=== PATIENT | female | born 1925 | race Caucasian/White ===

== ENCOUNTER 2017-06-01 09:54 | Observation (INO) ==
[2017-06-01] MEDS ORDERED: Nitroglycerin 0.4 MG TAB.SUBL SL ONE (10:02)
[2017-06-01 10:18] LABS: Basophils % 0.7 %; Eosinophils # 0.1 K/mcL (0.0-0.6); Eosinophils % 1.8 %; Hemoglobin 13.6 g/dL (11.5-15.4); Immature Granulocytes % 0.2 % (0-4); Lymphocytes # 1.6 K/mcL (0.6-4.6); Mean Corpuscular HGB Conc 33.2 g/dL (31.6-35.5); Mean Corpuscular Hemoglobin 30.2 pg (28.0-33.3); Mean Corpuscular Volume 91.1 fL (83.0-100.0); Mean Platelet Volume 10.2 fL (9.4-12.4); Monocytes # 0.5 K/mcL (0.0-1.3); Monocytes % 9.5 %; Neutrophils # 3.2 K/mcL (1.6-8.9); Platelet Count 173 K/mcL (140-400); Red Cell Distribution Width 13.3 % (11.5-14.5); Segmented Neutrophils % 58.8 %
--- NOTE | 2017-06-01 10:33 | Emergency Department Note ---
Disposition Clinical Impression: Chest pain Qualifiers: Chest pain type: unspecified Qualified Code(s): R07.9 - Chest pain, unspecified Disposition: Admitted As Inpatient Condition: Fair Referrals: Ananda Thakur DO [Primary Care Provider] - Forms: ED Satisfaction Letter Time of Disposition: 11:06 General Adult HPI - General Chief complaint: ED Chest Pain Stated complaint: CP Time Seen by Provider: 06/01/17 10:02 Source: patient, EMS Mode of arrival: EMS Limitations: no limitations Nursing Notes Reviewed: Yes Vital Signs Reviewed: Yes - History of Present Illness HPI Narrative: 89-year-old female with significant past medical history of hypertension and COPD presenting to the emergency department with chief complaint of substernal chest pain. Patient denies having stents in her heart or any CABG. She does state she had an MD in the past but is unsure how this was treated. Patient states she has had chest pain coming and going for the past 2-3 days. She normally lays down and the pain goes away but this time it did not. When she came in via EMS she was given 4 baby aspirin along with a nitroglycerin. Patient states her pain was moderately relieved with the nitroglycerin. Patient denies any shortness of breath, abdominal pain, fevers. Patient describes the chest pain as an electric-like feeling in her chest and into her scapula. Pain Scale: 1 - Related Data Home Medications Medication Instructions Recorded Confirmed Budesonide/Formoterol 80/4.5 1 puff IH DAILY 06/01/17 06/01/17 [Symbicort 80/4.5] Ezetimibe [Ezetimibe] 10 mg PO DAILY 06/01/17 06/01/17 Lisinopril-HCTZ 20-12.5 [Prinzide 1 tab PO DAILY 06/01/17 06/01/17 20-12.5] Metoprolol Succinate [Toprol Xl] 25 mg PO DAILY 06/01/17 06/01/17 Pantoprazole Sodium [Protonix] 40 mg PO DAILY 06/01/17 06/01/17 Simvastatin [Zocor] 40 mg PO HS 06/01/17 06/01/17 Allergies Allergy/AdvReac Type Severity Reaction Status Date / Time codeine Allergy Hives Verified 06/01/17 10:50 iodine Allergy Hives Verified 06/01/17 10:50 All systems ED: reviewed and negative except as stated. Cardiovascular: Reports: chest pain Musculoskeletal: Reports: back pain Past Medical History - Past Medical History Attestation: Yes The following information was validated with the patient. Medical history: Reports: coronary artery disease, GERD, hyperlipidemia, hypertension, myocardial infarction, syncope Surgical history: Reports: non-contributory Psychiatric history: Reports: no psych history - Social History Smoking Status: Never smoker Smokeless Tobacco Status: No Alcohol use: Reports: unknown Drug use: Reports: none Physical Exam - General Limitations: no limitations General appearance: alert, in no apparent distress - Head Head exam: atraumatic, normocephalic, normal inspection - Eye Eye exam: Present: normal appearance. Absent: scleral icterus, conjunctival injection - ENT ENT exam: normal exam, mucous membranes moist - Neck Neck exam: Present: normal inspection, full ROM. Absent: tenderness, meningismus - Chest Chest inspection: Present: normal inspection, symmetric chest wall rise. Absent : tenderness, rash - Respiratory Respiratory exam: Present: normal lung sounds bilaterally. Absent: respiratory distress, wheezes - Cardiovascular Cardiovascular exam: Present: regular rate, normal rhythm, normal heart sounds - Abdominal Exam Abdominal exam: Present: soft, Non-Tender. Absent: distention, guarding, rebound - Extremities Exam Extremities exam: Present: normal inspection, full ROM - Neurological Exam Neurological exam: Present: alert, oriented X3 - Psychiatric Psychiatric exam: Present: normal affect, normal mood - Skin Skin exam: Present: warm, intact Course Course Narrative: 11-year-old female presenting to the emergency department complaining of chest pain. Patient patient had an MD in the past but is unsure how this is treated. Denies stents, CABG or anticoagulation. We will perform chest pain workup including basic labs, troponin, EKG and chest x-ray. Disposition most likely admission due to patient's age and heart score. Patient is alert and oriented 3 and with stable vital signs. She agrees with this plan. - Reevaluation(s) Reevaluation #1: All patient's lab within normal limits. Repeat EKG completed. Unchanged. We will plan to admit The patient at this time for chest pain workup. I spoke with the hospitalist on-call Dr. Kaur who agrees to accept the patient at this time. Vital Signs Temperature 97.9 F 06/01/17 09:58 Pulse Rate 68 06/01/17 09:58 Respiratory Rate 20 06/01/17 09:58 Blood Pressure 168/84 06/01/17 09:58 O2 Sat by Pulse Oximetry 99 06/01/17 09:58 Temperature 97.9 F 06/01/17 09:58 Pulse Rate 73 06/01/17 11:05 Respiratory Rate 20 06/01/17 11:05 Blood Pressure 141/76 06/01/17 11:05 O2 Sat by Pulse Oximetry 99 06/01/17 11:05 Oxygen Delivery Oxygen Delivery Nasal Cannula Medical Decision Making - Lab Data Lab results reviewed: Yes I reviewed the patient's lab results. Result diagrams: 06/01/17 10:12 06/01/17 10:12 Lab Results 06/01/17 06/01/17 Range/Units 10:12 10:12 WBC 5.5 (4.3-11.1) K/mcL RBC 4.50 (3.82-4.97) M/mcL Hgb 13.6 (11.5-15.4) g/dL Hct 41.0 (35.3-44.9) % MCV 91.1 (83.0-100.0) fL MCH 30.2 (28.0-33.3) pg MCHC 33.2 (31.6-35.5) g/dL RDW 13.3 (11.5-14.5) % Plt Count 173 (140-400) K/mcL MPV 10.2 (9.4-12.4) fL Immature Gran % 0.2 (0-4) % Seg Neutrophils % 58.8 % Lymphocytes % 29.0 % Monocytes % 9.5 % Eosinophils % 1.8 % Basophils % 0.7 % Neutrophils # 3.2 (1.6-8.9) K/mcL Lymphocytes # 1.6 (0.6-4.6) K/mcL Monocytes # 0.5 (0.0-1.3) K/mcL Eosinophils # 0.1 (0.0-0.6) K/mcL Basophils # 0.0 (0.0-0.2) K/mcL Sodium 140 (136-145) mEq/L Potassium 3.5 (3.5-5.1) mEq/L Chloride 102 (98-107) mEq/L Carbon Dioxide 29 (23-29) mEq/L BUN 13 (8-23) mg/dL Creatinine 0.84 (0.60-1.20) mg/dL Est GFR ( Amer) > 60 (> 60) Est GFR (Non-Af Amer) > 60 (> 60) BUN/Creatinine Ratio 15 (6-26) Glucose 124 H (70-105) mg/dL Calculated Osmolality 292 (280-300) Calcium 9.5 (8.6-10.3) mg/dL Troponin I < 0.03 (< 0.04) ng/mL - Radiology Data Radiology results reviewed: Yes I reviewed the patient's radiology results. Chest X-Ray 06/01/17 10:02 IMPRESSION: No acute cardiopulmonary process. D/ / Anuradha Nichols MD / Anuradha Nichols MD Interpreting Provider: Anuradha Nichols MD - EKG Data EKG #1 EKG attestation: Yes I reviewed and interpreted this EKG. EKG results narrative: Sinus rhythm. 60 BPM. MN interval 150, QRS 84, QTC 419. No signs of acute ST segment elevation or ischemia. Compared to previous EKG completed on 2017 no significant changes EKG #2 EKG attestation: Yes I reviewed and interpreted this EKG. EKG results narrative: Sinus rhythm. 7 5 bpm. MN interval 137, QRS 90, QTC 428. No signs of acute ST segment elevation or ischemia. Attestation Statement - Attestation Attestation: I examined this patient and my medical decision-making was reviewed with the Resident Physician. I agree with the documented findings, disposition and treatment plan as described except to the extent set forth below. Patient to the ED with a chief complaint of chest pain. Center of her chest or back. Pain is resolved on my evaluation after nitroglycerin. Patient denies any history of stents or bypass but states she has had a heart attack. She is in no distress on examination. Heart regular rate and rhythm lungs clear. Plan. Cardiac workup is unremarkable. Her EKG is unchanged from baseline. Troponin is negative. Her pain is resolved nitroglycerin. She will be admitted secondary to risk factors for further cardiac workup.
[2017-06-01 10:42] LABS: BUN/Creatinine Ratio 15 (6-26); Blood Urea Nitrogen 13 mg/dL (8-23); Calcium 9.5 mg/dL (8.6-10.3); Carbon Dioxide 29 mEq/L (23-29); Chloride 102 mEq/L (98-107); Glucose 124 mg/dL (70-105); Osmolality,Calculated 292 (280-300); Potassium 3.5 mEq/L (3.5-5.1); Sodium 140 mEq/L (136-145); Troponin I < 0.03 ng/mL (< 0.04); eGFR For African Americans > 60 (> 60); eGFR For Non-African Americans > 60 (> 60)
[2017-06-01] MEDS ORDERED: *HR* LORazepam 2 MG/ML VIAL IVP ONE (12:02)
--- NOTE | 2017-06-01 12:04 | Internal Med History&Physical ---
Date of Encounter: 06/01/17 Time of Encounter: 12:01 Assessment and Plan (1) Chest pain Current visit: Yes Status: Acute Rule out acute coronary syndrome. Based on patient reported anxiety this could be etiology or contributing to symptoms. On physical exam had muscle wall tenderness after a fall one weeks ago. Pain both substernal and throughout back will need to workup aortic anerysm. Unsure if patient will stay still for abdominal ultrasound. - CT chest without contrast - Echocardiogram if patient is willing to do so - Cycle troponin - Ativan prn anxiety - IV Fentanyl q4 prn pain. If pain increases will add sublingual oxycodone instead Qualifiers: Chest pain type: unspecified Qualified Code(s): R07.9 - Chest pain, unspecified (2) Coronary artery disease Current visit: Yes Status: Acute Aspirin, Zocor Qualifiers: Coronary Disease-Associated Artery/Lesion type: [place] artery [place] vs. transplanted heart: [place] heart Associated angina: with unspecified angina Qualified Code(s): I25.119 - Atherosclerotic heart disease of [place] coronary artery with unspecified angina pectoris (3) GERD (gastroesophageal reflux disease) Current visit: Yes Status: Acute Qualifiers: Esophagitis presence: esophagitis presence not specified Qualified Code(s) : K21.9 - Gastro-esophageal reflux disease without esophagitis (4) Hyperlipemia Current visit: Yes Status: Acute Zocor 40 mg HS Qualifiers: Hyperlipidemia type: unspecified Qualified Code(s): E78.5 - Hyperlipidemia , unspecified (5) Hypertension Current visit: Yes Status: Acute Prinzide, Metoprolol Qualifiers: Hypertension type: essential hypertension Qualified Code(s): I10 - Essential (primary) hypertension (6) History of MT (myocardial infarction) Current visit: Yes Status: Acute Reported by patient. No prior cardiac workup available. COntinue Zocor, aspirin. Await Echocardiogram Internal Medicine - H&P: HPI History of present illness: Ms. Toledo is a 89 year old female who reports a history of MT, CAD, GERD, HTN, hpl presents for 3 day history of chest pain. Described as substernal and through her back, lasting minutes and at times for hours, rated at times 9/10 in severity. She describes as throbbing pain. Denies any history of trauma though a family member notes she did slip and fall one week ago at a . She denies palpitations or shortness of breath, denies numbness/tingling, diaphoresis, n/v. No recent workup found in EMR and patient does not recall last cardiac workup. En route to ED she was given 4 baby aspirin. In ED she had initial troponin negative and two EKGs were done that both did not show any ST/T wave changes. Heart score is 5 and patient was admitted for further workup. Past Med Surg Social Fam HX - Past Medical History Medical history: coronary artery disease, GERD, hyperlipidemia, hypertension, myocardial infarction, syncope Psychiatric history: no psych history - Past Surgical History Surgical History: non-contributory - Social History Smoking Status: Never smoker Smokeless Tobacco Status: No Alcohol use: unknown Drug use: none Internal Medicine - H&P: Meds Budesonide/Formoterol 80/4.5 [Symbicort 80/4.5] 1 puff IH DAILY 06/01/17 [ History] Ezetimibe [Ezetimibe] 10 mg PO DAILY 06/01/17 [History] Lisinopril-HCTZ 20-12.5 [Prinzide 20-12.5] 1 tab PO DAILY 06/01/17 [History] Metoprolol Succinate [Toprol Xl] 25 mg PO DAILY 06/01/17 [History] Pantoprazole Sodium [Protonix] 40 mg PO DAILY 06/01/17 [History] Simvastatin [Zocor] 40 mg PO HS 06/01/17 [History] 3 Allergy/AdvReac Type Severity Reaction Status Date / Time codeine Allergy Hives Verified 06/01/17 10:50 iodine Allergy Hives Verified 06/01/17 10:50 All Systems PM: A 10-system review of systems was performed and is negative for pertinent findings except as documented above in the HPI. - Constitutional Constitutional: no chills, no fever(s), no night sweats - EENT Eyes: no change in vision, no discharge, no pain, no photophobia Ears: no ear discharge, no ear pain, no tinnitus Nose, mouth and throat: no dysphagia, no nasal discharge, no neck pain, no sore throat - Cardiovascular Cardiovascular ROS IM: chest pain, no diaphoresis, no dyspnea, no lightheadedness, no palpitations, no syncope - Respiratory Respiratory: no cough, no dyspnea, no wheezing, no excessive phlegm production - Gastrointestinal Gastrointestinal: no abdominal pain, no diarrhea, no hematemesis, no hematochezia, no melena, no nausea, no vomiting - Genitourinary Genitourinary: no change in urinary stream, no dysuria, no flank pain, no hematuria - Musculoskeletal Musculoskeletal ROS IM: no numbness, no tingling Additional comments: left pectoral muscle pain - Integumentary Integumentary IM: no rash, no unusual bruising - Neurological Neurological ROS: no confusion, no convulsions, no focal weakness, no numbness, no tingling, no tremor(s) - Psychiatric Psychiatric: anxiety - Hematologic/Lymphatic Hematologic/Lymphatic: no easy bruising - Constitutional Vitals: Temp Pulse Resp BP Pulse Ox 97.9 F 73 20 141/76 99 06/01/17 09:58 06/01/17 11:05 06/01/17 11:05 06/01/17 11:05 06/01/17 11:05 General appearance: Present: A&O X 3, answers questions appropriately Exam: Anxious appearing left sternal tenderness - Head Head exam: Present: atraumatic, normocephalic - Eye Eye exam: Present: PERRL, conjuntiva pink, sclera anicteric Pupils: Present: PERRL - Neck Neck exam general surgery: Present: supple, trachea midline. Absent: lymphadenopathy - Respiratory Respiratory exam: Present: CTAB. Absent: accessory muscle use, rales, rhonchi, wheezes - Cardiovascular Cardiovascular exam: Present: RRR, +S1, +S2. Absent: diastolic murmur, gallop, rubs, systolic murmur - GI/Abdominal GI/Abdominal exam: Present: normal bowel sounds, soft, no peritoneal signs. Absent: distended, tenderness - Extremities Exam Extremities exam: Present: warm, radial pulses palpable and symmetrical. Absent : calf tenderness, cyanotic, pedal edema - Neurological Exam Neurological exam: Present: CN II-XII intact, oriented X3, no focal deficits. Absent: pronater drift, facial droop, speech deficit - Skin Skin exam: Present: dry, intact Internal Med - H&P Results - Labs CBC & Chem 7: 06/01/17 10:12 06/01/17 10:12 Labs: Short CBC 06/01/17 Range/Units 10:12 WBC 5.5 (4.3-11.1) K/mcL Hgb 13.6 (11.5-15.4) g/dL Hct 41.0 (35.3-44.9) % Plt Count 173 (140-400) K/mcL Neutrophils # 3.2 (1.6-8.9) K/mcL BMP 06/01/17 10:12 Sodium 140 Potassium 3.5 Chloride 102 Carbon Dioxide 29 BUN 13 Creatinine 0.84 Glucose 124 H Calcium 9.5 Cardiac Enzymes 06/01/17 Range/Units 10:12 Troponin I < 0.03 (< 0.04) ng/mL - Impressions ITS Impressions Chest X-Ray 06/01/17 10:02 IMPRESSION: No acute cardiopulmonary process. D/ / Anuradha Nichols MD / Anuradha Nichols MD Interpreting Provider: Anuradha Nichols MD
[2017-06-01] MEDS ORDERED: *HR* FentaNYL (PF) 100 MCG/2 ML VIAL IVP PRN (12:30)
[2017-06-01] MEDS: Nitroglycerin 0.4 MG TAB.SUBL SL PRN ×2 (13:29→15:35)
[2017-06-01] MEDS ORDERED: *HR* LORazepam 2 MG/ML VIAL IVP PRN (20:29)
[2017-06-02 06:25] LABS: Basophils % 0.5 %; Eosinophils # 0.1 K/mcL (0.0-0.6); Eosinophils % 1.6 %; Hematocrit 39.8 % (35.3-44.9); Hemoglobin 13.2 g/dL (11.5-15.4); Immature Granulocytes % 0.5 % (0-4); Lymphocytes # 1.7 K/mcL (0.6-4.6); Lymphocytes % 29.3 %; Mean Corpuscular HGB Conc 33.2 g/dL (31.6-35.5); Mean Corpuscular Hemoglobin 30.3 pg (28.0-33.3); Mean Corpuscular Volume 91.3 fL (83.0-100.0); Mean Platelet Volume 10.4 fL (9.4-12.4); Monocytes # 0.6 K/mcL (0.0-1.3); Neutrophils # 3.4 K/mcL (1.6-8.9); Platelet Count 156 K/mcL (140-400); Red Blood Count 4.36 M/mcL (3.82-4.97); Red Cell Distribution Width 13.4 % (11.5-14.5); Segmented Neutrophils % 58.1 %
[2017-06-02 06:27] LABS: INR 1.1; Prothrombin Time 11.6 Seconds (9.4-12.1)
[2017-06-02 06:46] LABS: Alanine Aminotransferase 15 Units/L (7-52); Albumin 3.7 g/dL (3.5-5.7); Albumin/Globulin Ratio 1.5 (1.1-2.2); Alkaline Phosphatase 43 Units/L (34-104); Aspartate Amino Transferase 18 Units/L (13-39); BUN/Creatinine Ratio 19 (6-26); Bilirubin,Total 0.8 mg/dL (0.3-1.0); Blood Urea Nitrogen 15 mg/dL (8-23); Calcium 8.9 mg/dL (8.6-10.3); Carbon Dioxide 28 mEq/L (23-29); Chloride 105 mEq/L (98-107); Globulin 2.4 g/dL (2.4-3.5); Glucose 101 mg/dL (70-105); Magnesium 2.2 mg/dL (1.6-2.6); Osmolality,Calculated 289 (280-300); Potassium 3.3 mEq/L (3.5-5.1); Sodium 139 mEq/L (136-145); Total Protein 6.1 g/dL (6.4-8.9); eGFR For African Americans > 60 (> 60); eGFR For Non-African Americans > 60 (> 60)
[2017-06-02] MEDS: Budesonide/Formoterol 80/4.5 MDI IH SCH (08:04)
[2017-06-02] MEDS: Acetaminophen 325 MG TABLET PO PRN (10:46)
[2017-06-02] MEDS: (Ezetimibe [Ezetimibe] 10 MG) PO SCH (10:49)
[2017-06-02] MEDS: Metoprolol XL (24 HR) Succ 25 MG TAB.ER.24H PO SCH (12:09)
[2017-06-02] MEDS: Lisinopril-HCTZ 20-12.5mg TABLET PO SCH (12:09)
--- NOTE | 2017-06-02 16:49 | Internal Med Progress Note ---
Date of Encounter: 06/02/17 Time of Encounter: 16:46 - Assessment and plan (1) Chest pain Current Visit: Yes Status: Acute Assessment and plan: -We will rule out coronary syndrome patient does have a history of anxiety which could be contributing to her symptoms. She does have some muscle tenderness continues to complain of substernal pain radiates from back to front we will obtain a CT of the abdomen to rule out any possible aneurysm CT of chest is negative Echo with EF 65% mild concentric left ventricular hypertrophy mild left ventricular diastolic dysfunction mild aortic regurgitation and mild pulmonary hypertension there is a small pericardial effusion present there is no echocardiographic evidence of tamponade Chronic troponins are negative X3 Ativan as needed for anxiety Fentanyl as needed for pain Qualifiers: Chest pain type: unspecified Qualified Code(s): R07.9 - Chest pain, unspecified (2) Coronary artery disease Current Visit: Yes Status: Acute Assessment and plan: 1 continue with metoprolol statin MONAE, nitroglycerin as needed for chest pain Cardiac monitoring Qualifiers: Coronary Disease-Associated Artery/Lesion type: [place] artery [place] vs. transplanted heart: [place] heart Associated angina: with unspecified angina Qualified Code(s): I25.119 - Atherosclerotic heart disease of [place] coronary artery with unspecified angina pectoris (3) GERD (gastroesophageal reflux disease) Current Visit: Yes Status: Acute Assessment and plan: Continue Prilosec Qualifiers: Esophagitis presence: esophagitis presence not specified Qualified Code(s) : K21.9 - Gastro-esophageal reflux disease without esophagitis (4) History of [place] (myocardial infarction) Current Visit: Yes Status: Acute Assessment and plan: 1 no prior cardiac workup available continue Zocor aspirin echo EF was 65% mild concentric left jugular hypertrophy mild left ventricular diastolic dysfunction mild aortic regurgitation mild pulmonary hypertension there is a small pericardial effusion no echocardiographic evidence of tamponade (5) Hyperlipemia Current Visit: Yes Status: Acute Assessment and plan: cont statin Qualifiers: Hyperlipidemia type: unspecified Qualified Code(s): E78.5 - Hyperlipidemia , unspecified (6) Hypertension Current Visit: Yes Status: Acute Assessment and plan: Continue with metoprolol Prinzide-pressure stable Qualifiers: Hypertension type: essential hypertension Qualified Code(s): I10 - Essential (primary) hypertension (7) DVT prophylaxis Current Visit: Yes Status: Acute Assessment and plan: Lovenox subcutaneous - Subjective Interval history: Patient continues to complain of pain radiating from mid back to chest. Describes the pain sharp at times it is relieved with pain medication. Patient expresses that her back pain impedes her mobility has concerns about ambulating. Informed patient she can ambulate with nursing nursing with walker. Otherwise no other complaints today - Constitutional Vitals: Temp Pulse Resp BP Pulse Ox 99 F 74 16 136/76 98 06/02/17 16:00 06/02/17 16:00 06/02/17 16:00 06/02/17 16:00 06/02/17 16:00 General appearance: Present: A&O X 3, answers questions appropriately - Head Head exam: Present: atraumatic, normocephalic - Eye Eye exam: Present: PERRL, conjuntiva pink, sclera anicteric Pupils: Present: PERRL - Neck Neck exam general surgery: Present: supple, trachea midline. Absent: lymphadenopathy - Respiratory Respiratory exam: Present: CTAB. Absent: accessory muscle use, rales, rhonchi, wheezes - Cardiovascular Cardiovascular exam: Present: RRR, +S1, +S2. Absent: diastolic murmur, gallop, rubs, systolic murmur - GI/Abdominal GI/Abdominal exam: Present: normal bowel sounds, soft, no peritoneal signs. Absent: distended, tenderness - Extremities Exam Extremities exam: Present: warm, radial pulses palpable and symmetrical. Absent : calf tenderness, cyanotic, pedal edema - Neurological Exam Neurological exam: Present: CN II-XII intact, oriented X3, no focal deficits. Absent: pronater drift, facial droop, speech deficit - Skin Skin exam: Present: dry, intact Internal Medicine: Result - Labs CBC & Chem 7: 06/02/17 05:27 06/02/17 05:27 Labs: Short CBC 06/02/17 Range/Units 05:27 WBC 5.8 (4.3-11.1) K/mcL Hgb 13.2 (11.5-15.4) g/dL Hct 39.8 (35.3-44.9) % Plt Count 156 (140-400) K/mcL Neutrophils # 3.4 (1.6-8.9) K/mcL BMP 06/02/17 05:27 Sodium 139 Potassium 3.3 L Chloride 105 Carbon Dioxide 28 BUN 15 Creatinine 0.78 Glucose 101 Calcium 8.9 Cardiac Enzymes 06/01/17 Range/Units 19:22 Troponin I < 0.03 (< 0.04) ng/mL Liver Function 06/02/17 Range/Units 05:27 Total Bilirubin 0.8 (0.3-1.0) mg/dL AST 18 (13-39) Units/L ALT 15 (7-52) Units/L Alkaline Phosphatase 43 (34-104) Units/L Albumin 3.7 (3.5-5.7) g/dL - ABG Interpretation ABG results: PT/INR, D-dimer PT 11.6 Seconds (9.4-12.1) 06/02/17 05:27 Consult Discharge Plan - Plan Referrals: ColopyAnanda DO [Primary Care Provider] -
[2017-06-03] MEDS: *HR* Enoxaparin 40 MG/0.4 ML SYRINGE SQ SCH (06:14)
[2017-06-03] MEDS: Budesonide/Formoterol 80/4.5 MDI IH SCH (07:17)
[2017-06-03] MEDS: (Ezetimibe [Ezetimibe] 10 MG) PO SCH (08:43)
[2017-06-03] MEDS: Metoprolol XL (24 HR) Succ 25 MG TAB.ER.24H PO SCH (08:44)
[2017-06-03] MEDS: Lisinopril-HCTZ 20-12.5mg TABLET PO SCH (08:45)
[2017-06-03 09:45] LABS: BUN/Creatinine Ratio 23 (6-26); Blood Urea Nitrogen 18 mg/dL (8-23); Calcium 9.3 mg/dL (8.6-10.3); Carbon Dioxide 29 mEq/L (23-29); Chloride 105 mEq/L (98-107); Glucose 137 mg/dL (70-105); Osmolality,Calculated 292 (280-300); Potassium 3.4 mEq/L (3.5-5.1); Sodium 139 mEq/L (136-145); eGFR For African Americans > 60 (> 60); eGFR For Non-African Americans > 60 (> 60)
[2017-06-03 11:09] LABS: Bilirubin,Urine Negative (Negative); Blood,Urine Negative (Negative); Clarity,Urine Clear (Clear); Color,Urine Yellow (Yellow); Glucose,Urine (UA) Normal (Normal); Ketones,Urine Negative (Negative); Leukocyte Esterase,Urine Negative (Negative); Nitrite,Urine Negative (Negative); PH,Urine 5.5 pH Units (5.0-8.0); Protein,Urine Negative (Neg-Trace); Specific Gravity,Urine 1.025 (1.010-1.025); Urobilinogen,Urine Normal (Normal)
--- NOTE | 2017-06-03 12:29 | Internal Med Progress Note ---
Date of Encounter: 06/03/17 Time of Encounter: 12:27 - Assessment and plan (1) Chest pain Current Visit: Yes Status: Acute Assessment and plan: -We will rule out coronary syndrome patient does have a history of anxiety which could be contributing to her symptoms. She does have some muscle tenderness-no complaints of chest pain or back pain today CT of abdomen was negative for any aneurysm CT of chest is negative Echo with EF 65% mild concentric left ventricular hypertrophy mild left ventricular diastolic dysfunction mild aortic regurgitation and mild pulmonary hypertension there is a small pericardial effusion present there is no echocardiographic evidence of tamponade troponins are negative X3 Ativan as needed for anxiety Qualifiers: Chest pain type: unspecified Qualified Code(s): R07.9 - Chest pain, unspecified (2) Weakness Current Visit: Yes Status: Acute Assessment and plan: 1according to nursing staff patient had some difficulty ambulating this morning apparently she ambulated in the halls without difficulty yesterday however today she seemed weaker. Neurologically she is intact no focal deficits patient states she just feels fatigued. She also reports history of falls in the past and concerned about being discharged home. Patient does live in assisted living and uses a walker to ambulate. We will consult PT OT for evaluation (3) Coronary artery disease Current Visit: Yes Status: Acute Assessment and plan: 1 continue with metoprolol statin MONAE, nitroglycerin as needed for chest pain Cardiac monitoring Qualifiers: Coronary Disease-Associated Artery/Lesion type: [place] artery [place] vs. transplanted heart: [place] heart Associated angina: with unspecified angina Qualified Code(s): I25.119 - Atherosclerotic heart disease of [place] coronary artery with unspecified angina pectoris (4) GERD (gastroesophageal reflux disease) Current Visit: Yes Status: Acute Assessment and plan: Continue Prilosec Qualifiers: Esophagitis presence: esophagitis presence not specified Qualified Code(s) : K21.9 - Gastro-esophageal reflux disease without esophagitis (5) History of [place] (myocardial infarction) Current Visit: Yes Status: Acute Assessment and plan: 1 no prior cardiac workup available continue Zocor aspirin echo EF was 65% mild concentric left ventricular hypertrophy mild left ventricular diastolic dysfunction mild aortic regurgitation mild pulmonary hypertension there is a small pericardial effusion no echocardiographic evidence of tamponade Cardiac troponins are not negative [address]-T wave abnormalities Continue with aspirin and statin and beta mary kay MONAE (6) Hyperlipemia Current Visit: Yes Status: Acute Assessment and plan: cont statin Qualifiers: Hyperlipidemia type: unspecified Qualified Code(s): E78.5 - Hyperlipidemia , unspecified (7) Hypertension Current Visit: Yes Status: Acute Assessment and plan: Continue with metoprolol Prinzide-pressure stable Qualifiers: Hypertension type: essential hypertension Qualified Code(s): I10 - Essential (primary) hypertension (8) DVT prophylaxis Current Visit: Yes Status: Acute Assessment and plan: Lovenox subcutaneous - Time Spent With Patient less than 15 minutes - Subjective Interval history: Patient does not complain of any chest pain or back pain at this time however she does complain of weakness. She had difficulty ambulating to the bathroom with assistance. Patient has had falls in the past. She lives independently at assisted living and uses a walker. She expressed anxiety about being discharged home she is fearful of falling. We will keep patient overnight and have PTOT evaluate her in a.m. - Constitutional Vitals: Temp Pulse Resp BP Pulse Ox 99.2 F 72 16 155/82 97 06/03/17 11:49 06/03/17 11:49 06/03/17 11:49 06/03/17 11:49 06/03/17 11:49 General appearance: Present: A&O X 3, answers questions appropriately - Head Head exam: Present: atraumatic, normocephalic - Eye Eye exam: Present: PERRL, conjuntiva pink, sclera anicteric Pupils: Present: PERRL - Neck Neck exam general surgery: Present: supple, trachea midline. Absent: lymphadenopathy - Respiratory Respiratory exam: Present: CTAB. Absent: accessory muscle use, rales, rhonchi, wheezes - Cardiovascular Cardiovascular exam: Present: RRR, +S1, +S2. Absent: diastolic murmur, gallop, rubs, systolic murmur - GI/Abdominal GI/Abdominal exam: Present: normal bowel sounds, soft, no peritoneal signs. Absent: distended, tenderness - Extremities Exam Extremities exam: Present: warm, radial pulses palpable and symmetrical. Absent : calf tenderness, cyanotic, pedal edema - Neurological Exam Neurological exam: Present: CN II-XII intact, oriented X3, no focal deficits. Absent: pronater drift, facial droop, speech deficit - Skin Skin exam: Present: dry, intact Internal Medicine: Result - Labs CBC & Chem 7: 06/02/17 05:27 06/03/17 09:12 Labs: BMP 06/03/17 09:12 Sodium 139 Potassium 3.4 L Chloride 105 Carbon Dioxide 29 BUN 18 Creatinine 0.79 Glucose 137 H Calcium 9.3 Urine 06/03/17 Range/Units 10:45 Urine Color Yellow (Yellow) Urine Clarity Clear (Clear) Urine pH 5.5 (5.0-8.0) pH Units Ur Specific [place] 1.025 (1.010-1.025) Urine Protein Negative (Neg-Trace) mg/dL Urine Glucose (UA) Normal (Normal) mg/dL - ABG Interpretation ABG results: PT/INR, D-dimer PT 11.6 Seconds (9.4-12.1) 06/02/17 05:27 - Impressions Impressions Abdomen/Pelvis CT 06/02/17 14:03 IMPRESSION: 1. Findings suggestive of cystitis, although the appearance could also be related to incomplete distention. 2. 0.4 cm solid nodule in the left lower lobe not present on 11/01/2011. Sequela of an infectious or inflammatory process is suspected. Consider follow-up chest CT in 1 year as below only if the patient is clinically considered to be at increased risk for developing lung cancer. 3. A few additional incidental findings as above. RECOMMENDATIONS: Fleischner Society guidelines for follow-up and management of incidentally detected pulmonary nodules: Single Solid Nodule: Nodule size less than 6 mm In a low-risk patient, no routine follow-up. In a high-risk patient, optional CT at 12 months. - Low risk patients include individuals with minimal or absent history of smoking and other known risk factors. - High risk patients include individuals with a history or smoking or known risk factors. Radiology 2017 http://pubs.rsna.org/doi/full/10.1148/radiol.[email or web address] D/ / Jg Salazar MD / Jg Salazar MD Interpreting Provider: Jg Salazar MD - Diagnostic Studies Other Images Additional comments: Chest X-Ray 06/01/17 10:02 IMPRESSION: No acute cardiopulmonary process. D/ / Anuradha Nichols MD / Anuradha Nichols MD Interpreting Provider: Anuradha Nichols MD Echocardiogram 06/01/17 11:54 Impressions: LVEF 65%. Mild concentric left ventricular hypertrophy. Mild left ventricular diastolic dysfunction. Mild aortic regurgitation. Mild pulmonary hypertension. There is a small pericardial effusion present. There is no echocardiographic evidence of tamponade. Normal IVC dimensions and inspiratory collapse. Left Ventricular Wall Motion: Rest Echo Findings All wall segments showed normal motion. Findings: Study Quality * Technically adequate exam. ECG Findings * Normal sinus rhythm. Left Ventricle * LVEF 65%. * Mild concentric left ventricular hypertrophy. * Mild left ventricular diastolic dysfunction. Right Ventricle * Normal right ventricular structure and function. Left Atrium * Normal left atrial size. Right Atrium * Normal right atrial size. Interatrial Septum * No evidence of PFO by color Doppler. Aortic Valve * Mild aortic regurgitation. Mitral Valve * Trace mitral regurgitation. Tricuspid Valve * Mild tricuspid regurgitation. * Mild pulmonary hypertension. * Estimated RVSP is 36 mmHg. * Estimated RA pressure is 5 mmHg. Pulmonic Valve * Pulmonic valve not well visualized. Aorta * Normally sized aortic root. Pericardium * There is a small pericardial effusion present. * There is no echocardiographic evidence of tamponade. IVC * Normal IVC dimensions and inspiratory collapse. Chest CT 06/01/17 12:29 IMPRESSION: 1. No acute intrathoracic process identified. 2. Normal caliber of the thoracic aorta. Scattered mild calcified atherosclerotic plaque present throughout the thoracic aorta. 3. Evidence for prior granulomatous disease. D/ / Tye Hooks MD / Tye Hooks MD Interpreting Provider: Tye Hooks MD Abdomen/Pelvis CT 06/02/17 14:03 IMPRESSION: 1. Findings suggestive of cystitis, although the appearance could also be related to incomplete distention. 2. 0.4 cm solid nodule in the left lower lobe not present on 11/01/2011. Sequela of an infectious or inflammatory process is suspected. Consider follow-up chest CT in 1 year as below only if the patient is clinically considered to be at increased risk for developing lung cancer. 3. A few additional incidental findings as above. RECOMMENDATIONS: Fleischner Society guidelines for follow-up and management of incidentally detected pulmonary nodules: Single Solid Nodule: Nodule size less than 6 mm In a low-risk patient, no routine follow-up. In a high-risk patient, optional CT at 12 months. - Low risk patients include individuals with minimal or absent history of smoking and other known risk factors. - High risk patients include individuals with a history or smoking or known risk factors. Radiology 2017 http://pubs.rsna.org/doi/full/10.1148/radiol.2904349032 D/ / Jg Salazar MD / Jg Salazar MD Interpreting Provider: Jg Salazar MD Consult Discharge Plan - Plan Referrals: Ananda Thakur DO [Primary Care Provider] -
[2017-06-03] MEDS: Aspirin 81 MG TAB.CHEW PO SCH (12:45)
[2017-06-03] MEDS: Acetaminophen 325 MG TABLET PO PRN (21:03)
[2017-06-04 05:47] LABS: Basophils % 0.6 %; Eosinophils # 0.2 K/mcL (0.0-0.6); Eosinophils % 2.9 %; Hematocrit 38.9 % (35.3-44.9); Hemoglobin 12.8 g/dL (11.5-15.4); Immature Granulocytes % 0.5 % (0-4); Lymphocytes # 1.9 K/mcL (0.6-4.6); Lymphocytes % 31.2 %; Mean Corpuscular HGB Conc 32.9 g/dL (31.6-35.5); Mean Corpuscular Hemoglobin 30.5 pg (28.0-33.3); Mean Corpuscular Volume 92.6 fL (83.0-100.0); Mean Platelet Volume 10.4 fL (9.4-12.4); Monocytes # 0.6 K/mcL (0.0-1.3); Monocytes % 10.3 %; Neutrophils # 3.4 K/mcL (1.6-8.9); Platelet Count 161 K/mcL (140-400); Red Cell Distribution Width 13.2 % (11.5-14.5); Segmented Neutrophils % 54.5 %
[2017-06-04] MEDS: *HR* Enoxaparin 40 MG/0.4 ML SYRINGE SQ SCH (06:08)
[2017-06-04 06:10] LABS: BUN/Creatinine Ratio 32 (6-26); Blood Urea Nitrogen 23 mg/dL (8-23); Calcium 9.2 mg/dL (8.6-10.3); Carbon Dioxide 28 mEq/L (23-29); Chloride 106 mEq/L (98-107); Glucose 117 mg/dL (70-105); Osmolality,Calculated 297 (280-300); Potassium 3.5 mEq/L (3.5-5.1); Sodium 141 mEq/L (136-145); eGFR For African Americans > 60 (> 60); eGFR For Non-African Americans > 60 (> 60)
[2017-06-04] MEDS: Metoprolol XL (24 HR) Succ 25 MG TAB.ER.24H PO SCH (08:22)
[2017-06-04] MEDS: Aspirin 81 MG TAB.CHEW PO SCH (08:22)
[2017-06-04] MEDS: Lisinopril-HCTZ 20-12.5mg TABLET PO SCH (08:22)
[2017-06-04] MEDS: (Ezetimibe [Ezetimibe] 10 MG) PO SCH (08:24)
[2017-06-04] MEDS: Budesonide/Formoterol 80/4.5 MDI IH SCH (11:35)
--- NOTE | 2017-06-04 15:56 | Internal Med Progress Note ---
Date of Encounter: 06/04/17 Time of Encounter: 11:00 - Assessment and plan (1) Chest pain Current Visit: Yes Status: Acute Assessment and plan: -oes not complain of any chest pain or back pain at this time She does have some muscle tenderness-relieved with pain medication CT of abdomen was negativ CT of chest is negative-I do not suspect this is cardiac more musculoskeletal Echo with EF 65% mild concentric left ventricular hypertrophy mild left ventricular diastolic dysfunction mild aortic regurgitation and mild pulmonary hypertension there is a small pericardial effusion present there is no echocardiographic evidence of tamponade-there is no friction rub I did speak with Dr. Castorena cardiology concerning small pericardial effusion, advises as long as vital signs are stable to continue to monitor, consult cardiology if patient becomes tachycardic continued chest pain. -We will obtain outpatient echo in 1 week to monitor progression troponins are negative X3 Ativan as needed for anxiety Continue pain medications as needed Qualifiers: Chest pain type: unspecified Qualified Code(s): R07.9 - Chest pain, unspecified (2) Weakness Current Visit: Yes Status: Acute Assessment and plan: 1 -weakness unsteady gait patient admits to unsteady gait at home she did have a fall earlier this week she denies any loss of consciousness or striking her head. She is not on any anticoagulation. There are no focal deficits. She is alert and appropriate following simple commands. According nursing staff at time she walks well with one assist and a walker however at a time she is very unsteady ambulating with a walker. She is a fall risk we will place on fall precautions 2 she was evaluated by PT and OT recommends [facility] 3 social work job titles has been consult and for placement (3) Coronary artery disease Current Visit: Yes Status: Acute Assessment and plan: 1 continue with metoprolol statin MONAE, nitroglycerin as needed for chest pain Cardiac monitoring Qualifiers: Coronary Disease-Associated Artery/Lesion type: [place] artery [place] vs. transplanted heart: [place] heart Associated angina: with unspecified angina Qualified Code(s): I25.119 - Atherosclerotic heart disease of [place] coronary artery with unspecified angina pectoris (4) GERD (gastroesophageal reflux disease) Current Visit: Yes Status: Acute Assessment and plan: Continue Prilosec Qualifiers: Esophagitis presence: esophagitis presence not specified Qualified Code(s) : K21.9 - Gastro-esophageal reflux disease without esophagitis (5) History of [place] (myocardial infarction) Current Visit: Yes Status: Acute Assessment and plan: 1 no prior cardiac workup available continue Zocor aspirin echo EF was 65% mild concentric left ventricular hypertrophy mild left ventricular diastolic dysfunction mild aortic regurgitation mild pulmonary hypertension there is a small pericardial effusion no echocardiographic evidence of tamponade-we will recheck echo in 1 week. Consult cardiology as needed. Suspect present chest pain related to musculoskeletal Cardiac troponins are not negative [address]-T wave abnormalities Continue with aspirin and statin and beta mary kay MONAE (6) Hyperlipemia Current Visit: Yes Status: Acute Assessment and plan: cont statin Qualifiers: Hyperlipidemia type: unspecified Qualified Code(s): E78.5 - Hyperlipidemia , unspecified (7) Hypertension Current Visit: Yes Status: Acute Assessment and plan: Continue with metoprolol Prinzide-pressure stable Qualifiers: Hypertension type: essential hypertension Qualified Code(s): I10 - Essential (primary) hypertension (8) Falls Current Visit: Yes Status: Acute Assessment and plan: Patient is high risk for falls she had a fall earlier in the week while at a . Patient does admit to having falls at home. She does use a walker and lives independently assisted living. She denies striking head or loss of consciousness. She is not on any anticoagulation. Patient is on fall precautions PTOT suggesting [facility] Social service consult Qualifiers: Encounter type: initial encounter Qualified Code(s): W19.XXXA - Unspecified fall, initial encounter (9) DVT prophylaxis Current Visit: Yes Status: Acute Assessment and plan: Lovenox subcutaneous - Time Spent With Patient less than 15 minutes - Subjective Interval history: Presently patient is alert and oriented she denies any chest pain or back pain this time. Still expresses concerns about going home and fear of falling. summary The patient originally presented to the ER with substernal pain through her back lasting minutes at times for hours. CT of abdomen and chest were negative for any aneurysm. Echocardiogram was completed preserved EF-small pericardial effusion-spoke with Dr. Castorena whether or not patient should be seen by cardiology no consult warranted at this time, however any changes and vital signs cardiology should be notified Will check echo in one week as out patient troponins have been negative EKG with no ST-T wave abnormalities. Her chest pain had improved with pain medication however she was having difficulty ambulating and required assistance. Patient verbalized that she has had falls in the past most recently earlier this week at a . She denies any loss of consciousness or striking her head. She is not on any anti coagulation. There are no focal deficits. She lives independently at assisted living and uses a walker. She expresses anxiety about being discharged home due to fear falling. She ambulated in the [place] with nursing staff without difficulty. She was evaluated by PT and OT today which advised for ECF placement. financial services counselor has been notified - Constitutional Vitals: Temp Pulse Resp BP Pulse Ox 97.7 F 68 18 177/74 96 06/04/17 12:05 06/04/17 12:05 06/04/17 12:05 06/04/17 12:05 06/04/17 12:05 General appearance: Present: A&O X 3, answers questions appropriately - Head Head exam: Present: atraumatic, normocephalic - Eye Eye exam: Present: PERRL, conjuntiva pink, sclera anicteric Pupils: Present: PERRL - Neck Neck exam general surgery: Present: supple, trachea midline. Absent: lymphadenopathy - Respiratory Respiratory exam: Present: chest wall tenderness, CTAB. Absent: accessory muscle use, rales, rhonchi, wheezes - Cardiovascular Cardiovascular exam: Present: RRR, +S1, +S2. Absent: diastolic murmur, gallop, rubs, systolic murmur - GI/Abdominal GI/Abdominal exam: Present: normal bowel sounds, soft, no peritoneal signs. Absent: distended, tenderness - Extremities Exam Extremities exam: Present: warm, radial pulses palpable and symmetrical. Absent : calf tenderness, cyanotic, pedal edema - Neurological Exam Neurological exam: Present: CN II-XII intact, oriented X3, no focal deficits. Absent: pronater drift, facial droop, speech deficit - Skin Skin exam: Present: dry, intact Internal Medicine: Result - Labs CBC & Chem 7: 06/04/17 05:22 06/04/17 05:22 Labs: Short CBC 06/04/17 Range/Units 05:22 WBC 6.2 (4.3-11.1) K/mcL Hgb 12.8 (11.5-15.4) g/dL Hct 38.9 (35.3-44.9) % Plt Count 161 (140-400) K/mcL Neutrophils # 3.4 (1.6-8.9) K/mcL BMP 06/04/17 05:22 Sodium 141 Potassium 3.5 Chloride 106 Carbon Dioxide 28 BUN 23 Creatinine 0.72 Glucose 117 H Calcium 9.2 - ABG Interpretation ABG results: PT/INR, D-dimer PT 11.6 Seconds (9.4-12.1) 06/02/17 05:27 Consult Discharge Plan - Plan Referrals: ColopyAnanda DO [Primary Care Provider] -
[2017-06-04] MEDS ORDERED: Naloxone 0.4 MG/ML INJ IVP PRN (16:08)
[2017-06-05] MEDS: *HR* Enoxaparin 40 MG/0.4 ML SYRINGE SQ SCH (05:30)
[2017-06-05] MEDS: Budesonide/Formoterol 80/4.5 MDI IH SCH (08:03)
[2017-06-05] MEDS: Metoprolol XL (24 HR) Succ 25 MG TAB.ER.24H PO SCH (08:28)
[2017-06-05] MEDS: Lisinopril-HCTZ 20-12.5mg TABLET PO SCH (08:28)
[2017-06-05] MEDS: Aspirin 81 MG TAB.CHEW PO SCH (08:28)
[2017-06-05] MEDS: (Ezetimibe [Ezetimibe] 10 MG) PO SCH (08:28)
--- NOTE | 2017-06-05 17:55 | Internal Med Progress Note ---
Date of Encounter: 06/05/17 Time of Encounter: 17:53 - Assessment and plan (1) Chest pain Current Visit: Yes Status: Acute Assessment and plan: Patient denies any chest pain at this time. She did have some muscle tenderness earlier that was relieved with pain medication. CT of the abdomen and chest were negative. Pain likely musculoskeletal or in nature Echo with EF 65%, mild concentric left ventricular hypertrophy and mild left ventricular diastolic dysfunction. Some mild aortic regurgitation and mild pulmonary hypertension. There is a small pericardial effusion present but no echocardiographic evidence of tamponade not. No pericardial rub on exam. Opponents negative 3 Pain medication as needed Cardiology follow-up with echocardiogram in 1 week Qualifiers: Chest pain type: unspecified Qualified Code(s): R07.9 - Chest pain, unspecified (2) Coronary artery disease Current Visit: Yes Status: Acute Assessment and plan: Continue home medications including metipranolol, statin and sara. Nitroglycerin as needed for chest pain Cardiac monitoring Qualifiers: Coronary Disease-Associated Artery/Lesion type: [place] artery [place] vs. transplanted heart: [place] heart Associated angina: with unspecified angina Qualified Code(s): I25.119 - Atherosclerotic heart disease of [place] coronary artery with unspecified angina pectoris (3) DVT prophylaxis Current Visit: Yes Status: Acute Assessment and plan: Lovenox subcutaneous (4) Falls Current Visit: Yes Status: Acute Assessment and plan: Patient at high risk for falls with previous falls. She uses a walker and lives independently at assisted living. She denies striking her head or any loss of consciousness. Continue fall precautions PT and OT recommended [facility] Social service consult it and await authorization for transfer to [facility] Qualifiers: Encounter type: initial encounter Qualified Code(s): W19.XXXA - Unspecified fall, initial encounter (5) GERD (gastroesophageal reflux disease) Current Visit: Yes Status: Acute Assessment and plan: Continue Prilosec Qualifiers: Esophagitis presence: esophagitis presence not specified Qualified Code(s) : K21.9 - Gastro-esophageal reflux disease without esophagitis (6) History of [place] (myocardial infarction) Current Visit: Yes Status: Acute Assessment and plan: Present chest pain musculoskeletal in nature Cardiac troponins negative [address]-T wave abnormalities (7) Hyperlipemia Current Visit: Yes Status: Acute Assessment and plan: Continue statin Qualifiers: Hyperlipidemia type: unspecified Qualified Code(s): E78.5 - Hyperlipidemia , unspecified (8) Hypertension Current Visit: Yes Status: Acute Assessment and plan: Blood pressure stable continue home medications Qualifiers: Hypertension type: essential hypertension Qualified Code(s): I10 - Essential (primary) hypertension (9) Weakness Current Visit: Yes Status: Acute Assessment and plan: Patient for transfer to ECF for some rehabilitation. - Subjective Interval history: Patient lying in the bed, she denies chest pain, shortness of breath, fever, chills abdominal pain or changes in bowel or bladder. She is aware of [facility]. She has no questions or concerns at this time. - Constitutional Vitals: Temp Pulse Resp BP Pulse Ox 97.3 F L 81 18 145/72 98 06/05/17 14:58 06/05/17 14:58 06/05/17 14:58 06/05/17 14:58 06/05/17 14:58 General appearance: Present: cooperative, A&O X 3, pleasant, answers questions appropriately - Head Head exam: Present: atraumatic, normocephalic - Eye Eye exam: Present: PERRL, conjuntiva pink, sclera anicteric Pupils: Present: PERRL - Neck Neck exam general surgery: Present: supple, trachea midline. Absent: lymphadenopathy - Respiratory Respiratory exam: Present: CTAB. Absent: accessory muscle use, rales, rhonchi, wheezes - Cardiovascular Cardiovascular exam: Present: RRR, +S1, +S2. Absent: diastolic murmur, gallop, rubs, systolic murmur - GI/Abdominal GI/Abdominal exam: Present: normal bowel sounds, soft, no peritoneal signs. Absent: distended, tenderness - Extremities Exam Extremities exam: Present: warm, radial pulses palpable and symmetrical. Absent : calf tenderness, cyanotic, pedal edema - Neurological Exam Neurological exam: Present: alert, CN II-XII intact, oriented X3, no focal deficits. Absent: pronater drift, facial droop, speech deficit - Skin Skin exam: Present: dry, intact, normal color, warm Internal Medicine: Result - Labs CBC & Chem 7: 06/04/17 05:22 06/04/17 05:22 - ABG Interpretation ABG results: PT/INR, D-dimer PT 11.6 Seconds (9.4-12.1) 06/02/17 05:27 Consult Discharge Plan - Plan Referrals: ColAnanda rawls DO [Primary Care Provider] -
--- NOTE | 2017-06-05 22:25 | Electrocardiograph Report ---
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
--- NOTE | 2017-06-05 22:31 | Electrocardiograph Report ---
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
--- NOTE | 2017-06-05 22:54 | Electrocardiograph Report ---
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
[2017-06-06] MEDS: *HR* Enoxaparin 40 MG/0.4 ML SYRINGE SQ SCH (06:28)
[2017-06-06] MEDS: Budesonide/Formoterol 80/4.5 MDI IH SCH (07:42)
[2017-06-06] MEDS: (Ezetimibe [Ezetimibe] 10 MG) PO SCH (09:14)
[2017-06-06] MEDS: Metoprolol XL (24 HR) Succ 25 MG TAB.ER.24H PO SCH (09:16)
[2017-06-06] MEDS: Lisinopril-HCTZ 20-12.5mg TABLET PO SCH (09:16)
[2017-06-06] MEDS: Aspirin 81 MG TAB.CHEW PO SCH (09:16)
--- NOTE | 2017-06-06 17:58 | Internal Med Progress Note ---
Date of Encounter: 06/06/17 Time of Encounter: 17:56 - Assessment and plan (1) Chest pain Current Visit: Yes Status: Acute Assessment and plan: Patient denies chest pain at this time. She did have some muscle tenderness earlier that was relieved with pain medication. CT of the abdomen and chest were negative. Pain likely musculoskeletal in nature Echo with EF 65%, mild concentric left ventricular hypertrophy and mild left ventricular diastolic dysfunction. Some mild aortic regurgitation and mild pulmonary hypertension. There is a small pericardial effusion present but no echocardiographic evidence of tamponade not. No pericardial rub on exam. Opponents negative 3 Pain medication as needed Cardiology follow-up with echocardiogram in 1 week Qualifiers: Chest pain type: unspecified Qualified Code(s): R07.9 - Chest pain, unspecified (2) Coronary artery disease Current Visit: Yes Status: Acute Assessment and plan: Continue home medications - metipranolol, statin and sara. Nitroglycerin as needed for chest pain Cardiac monitoring Qualifiers: Coronary Disease-Associated Artery/Lesion type: [place] artery [place] vs. transplanted heart: [place] heart Associated angina: with unspecified angina Qualified Code(s): I25.119 - Atherosclerotic heart disease of [place] coronary artery with unspecified angina pectoris (3) DVT prophylaxis Current Visit: Yes Status: Acute Assessment and plan: Lovenox subcutaneous BID (4) Falls Current Visit: Yes Status: Acute Assessment and plan: Patient at high risk for falls with history of previous falls. She uses a walker and lives independently at assisted living. She denies striking her head or any loss of consciousness. Continue fall precautions PT and OT recommended [facility] Social service consult it and await authorization for transfer to [facility] Qualifiers: Encounter type: initial encounter Qualified Code(s): W19.XXXA - Unspecified fall, initial encounter (5) GERD (gastroesophageal reflux disease) Current Visit: Yes Status: Acute Assessment and plan: Prilosec Qualifiers: Esophagitis presence: esophagitis presence not specified Qualified Code(s) : K21.9 - Gastro-esophageal reflux disease without esophagitis (6) History of [place] (myocardial infarction) Current Visit: Yes Status: Acute Assessment and plan: Present chest pain musculoskeletal in nature Cardiac troponins negative [address]-T wave abnormalities (7) Hyperlipemia Current Visit: Yes Status: Acute Assessment and plan: Continue her statin Qualifiers: Hyperlipidemia type: unspecified Qualified Code(s): E78.5 - Hyperlipidemia , unspecified (8) Hypertension Current Visit: Yes Status: Acute Assessment and plan: Blood pressure stable, continue home medications Qualifiers: Hypertension type: essential hypertension Qualified Code(s): I10 - Essential (primary) hypertension (9) Weakness Current Visit: Yes Status: Acute Assessment and plan: Patient for transfer to [facility] for rehabilitation. - Subjective Interval history: Patient sitting up in a chair. She denies any chest pain, shortness of breath, fever, chills, abdominal pain or other difficulties. She wants to go home. We are waiting placement authorization. - Constitutional Vitals: Temp Pulse Resp BP Pulse Ox 97.5 F L 76 16 169/77 96 06/06/17 15:12 06/06/17 15:12 06/06/17 15:12 06/06/17 15:12 06/06/17 15:12 General appearance: Present: cooperative, A&O X 3, pleasant, answers questions appropriately - Head Head exam: Present: atraumatic, normocephalic - Eye Eye exam: Present: PERRL, conjuntiva pink, sclera anicteric Pupils: Present: PERRL - Neck Neck exam general surgery: Present: supple, trachea midline. Absent: lymphadenopathy - Respiratory Respiratory exam: Present: CTAB. Absent: accessory muscle use, rales, rhonchi, wheezes - Cardiovascular Cardiovascular exam: Present: RRR, +S1, +S2. Absent: diastolic murmur, gallop, rubs, systolic murmur - GI/Abdominal GI/Abdominal exam: Present: normal bowel sounds, soft, no peritoneal signs. Absent: distended, tenderness - Extremities Exam Extremities exam: Present: warm, radial pulses palpable and symmetrical. Absent : calf tenderness, cyanotic, pedal edema - Neurological Exam Neurological exam: Present: CN II-XII intact, oriented X3, no focal deficits. Absent: pronater drift, facial droop, speech deficit - Skin Skin exam: Present: dry, intact, normal color, warm Internal Medicine: Result - Labs CBC & Chem 7: 06/04/17 05:22 06/04/17 05:22 - ABG Interpretation ABG results: PT/INR, D-dimer PT 11.6 Seconds (9.4-12.1) 06/02/17 05:27 Consult Discharge Plan - Plan Referrals: ColAnanda rawls DO [Primary Care Provider] -
[2017-06-07] MEDS ORDERED: cloNIDine HCl 0.1 MG TABLET PO ONE (04:06)
[2017-06-07] MEDS: *HR* Enoxaparin 40 MG/0.4 ML SYRINGE SQ SCH (06:17)
[2017-06-07] MEDS: Budesonide/Formoterol 80/4.5 MDI IH SCH (07:54)
[2017-06-07] MEDS: Lisinopril-HCTZ 20-12.5mg TABLET PO SCH (08:48)
[2017-06-07] MEDS: (Ezetimibe [Ezetimibe] 10 MG) PO SCH (08:48)
[2017-06-07] MEDS: Aspirin 81 MG TAB.CHEW PO SCH (08:48)
[2017-06-07] MEDS: Metoprolol XL (24 HR) Succ 25 MG TAB.ER.24H PO SCH (08:48)
[2017-06-07 11:10] VITALS: BP 130/75
--- NOTE | 2017-06-07 13:38 | Internal Med Progress Note ---
Date of Encounter: 06/07/17 Time of Encounter: 13:36 - Assessment and plan (1) Chest pain Current Visit: Yes Status: Acute Assessment and plan: Patient denies chest pain at this time. She did have some muscle tenderness on admission that was relieved with pain medication. CT of the abdomen and chest were negative. Pain likely musculoskeletal in nature Echo with EF 65%, mild concentric left ventricular hypertrophy and mild left ventricular diastolic dysfunction. Some mild aortic regurgitation and mild pulmonary hypertension. There is a small pericardial effusion present but no echocardiographic evidence of tamponade not. No pericardial rub on exam. Opponents negative 3 Pain medication as needed Cardiology follow-up with echocardiogram in 1 week Qualifiers: Chest pain type: unspecified Qualified Code(s): R07.9 - Chest pain, unspecified (2) Coronary artery disease Current Visit: Yes Status: Acute Assessment and plan: Continue home medications: metipranolol, statin and sara. Nitroglycerin as needed for chest pain Cardiac monitoring Qualifiers: Coronary Disease-Associated Artery/Lesion type: [place] artery [place] vs. transplanted heart: [place] heart Associated angina: with unspecified angina Qualified Code(s): I25.119 - Atherosclerotic heart disease of [place] coronary artery with unspecified angina pectoris (3) DVT prophylaxis Current Visit: Yes Status: Acute Assessment and plan: Lovenox subcutaneous (4) Falls Current Visit: Yes Status: Acute Assessment and plan: Patient at high risk for falls with a history of previous falls. She uses a walker and lives independently at assisted living. She denies striking her head or any loss of consciousness. Continue fall precautions PT and OT recommended [facility] Social service consult it and await authorization for transfer to [facility] Qualifiers: Encounter type: initial encounter Qualified Code(s): W19.XXXA - Unspecified fall, initial encounter (5) GERD (gastroesophageal reflux disease) Current Visit: Yes Status: Acute Assessment and plan: Continue Prilosec Qualifiers: Esophagitis presence: esophagitis presence not specified Qualified Code(s) : K21.9 - Gastro-esophageal reflux disease without esophagitis (6) History of [place] (myocardial infarction) Current Visit: Yes Status: Acute Assessment and plan: Presented with chest pain musculoskeletal in nature Cardiac troponins negative [address]-T wave abnormalities (7) Hyperlipemia Current Visit: Yes Status: Acute Assessment and plan: Continue statin Qualifiers: Hyperlipidemia type: unspecified Qualified Code(s): E78.5 - Hyperlipidemia , unspecified (8) Hypertension Current Visit: Yes Status: Acute Assessment and plan: Blood pressure is stable with periodic elevation noted, question correct BP as mostly well controlled on list, continue home medications Qualifiers: Hypertension type: essential hypertension Qualified Code(s): I10 - Essential (primary) hypertension (9) Weakness Current Visit: Yes Status: Acute Assessment and plan: Patient for transfer to [facility] per PT/OT for rehabilitation. - Subjective Interval history: Patient sitting up in a bed eating breakfast. She denies any chest pain shortness of breath fever chills or sweats. She stated her blood pressure was elevated last night and she caused "quite a stir". She is a little bit tired this morning. - Constitutional Vitals: Temp Pulse Resp BP Pulse Ox 98.0 F 77 18 130/75 98 06/07/17 11:09 06/07/17 11:09 06/07/17 11:09 06/07/17 11:09 06/07/17 11:09 General appearance: Present: cooperative, A&O X 3, pleasant, answers questions appropriately - Head Head exam: Present: atraumatic, normocephalic - Eye Eye exam: Present: PERRL, conjuntiva pink, sclera anicteric Pupils: Present: PERRL - Neck Neck exam general surgery: Present: supple, trachea midline. Absent: lymphadenopathy - Respiratory Respiratory exam: Present: CTAB. Absent: accessory muscle use, rales, rhonchi, wheezes - Cardiovascular Cardiovascular exam: Present: RRR, +S1, +S2. Absent: diastolic murmur, gallop, rubs, systolic murmur - GI/Abdominal GI/Abdominal exam: Present: normal bowel sounds, soft, no peritoneal signs. Absent: distended, tenderness - Extremities Exam Extremities exam: Present: warm, radial pulses palpable and symmetrical. Absent : calf tenderness, cyanotic, pedal edema - Neurological Exam Neurological exam: Present: alert, CN II-XII intact, oriented X3, no focal deficits. Absent: pronater drift, facial droop, speech deficit - Skin Skin exam: Present: dry, intact, normal color, warm Internal Medicine: Result - Labs CBC & Chem 7: 06/04/17 05:22 06/04/17 05:22 - ABG Interpretation ABG results: PT/INR, D-dimer PT 11.6 Seconds (9.4-12.1) 06/02/17 05:27 Consult Discharge Plan - Plan Referrals: Ananda Thakur DO [Primary Care Provider] -
--- NOTE | 2017-06-07 14:19 | Discharge Summary ---
- NOTES TO OUTPATIENT PROVIDER Notes to Outpatient Provider: Follow-up with repeat echocardiogram to evaluate small pericardial effusion Date of Encounter: 06/07/17 Time of Encounter: 14:16 - Discharge Diagnosis (1) Chest pain Priority: Primary Status: Acute Qualifiers: Chest pain type: unspecified Qualified Code(s): R07.9 - Chest pain, unspecified (2) Coronary artery disease Priority: Primary Status: Acute Qualifiers: Coronary Disease-Associated Artery/Lesion type: [place] artery [place] vs. transplanted heart: [place] heart Associated angina: with unspecified angina Qualified Code(s): I25.119 - Atherosclerotic heart disease of [place] coronary artery with unspecified angina pectoris (3) Falls Priority: Primary Status: Acute Qualifiers: Encounter type: initial encounter Qualified Code(s): W19.XXXA - Unspecified fall, initial encounter (4) GERD (gastroesophageal reflux disease) Priority: Primary Status: Acute Qualifiers: Esophagitis presence: esophagitis presence not specified Qualified Code(s) : K21.9 - Gastro-esophageal reflux disease without esophagitis (5) History of [place] (myocardial infarction) Priority: Primary Status: Acute (6) Hyperlipemia Priority: Primary Status: Acute Qualifiers: Hyperlipidemia type: unspecified Qualified Code(s): E78.5 - Hyperlipidemia , unspecified (7) Hypertension Priority: Primary Status: Acute Qualifiers: Hypertension type: essential hypertension Qualified Code(s): I10 - Essential (primary) hypertension (8) Weakness Priority: Primary Status: Acute Hospital course: Ms. Toledo is a 89 year old female with a history of [place], CAD, GERD, hypertension , hyperlipidemia who presented for 3 day history of chest pain described as substernal and through into her back lasting minutes to hours. She rated at a 9 out of 10 at times in severity. She stated it was a throbbing pain. She denied any history of trauma although family member reported she did slip and fall 1 week ago before admission at a . Troponins were negative, EKGs showed no ST-T wave changes. Echocardiogram was obtained with LVEF 65%, mild concentric left ventricular hypertrophy, mild left ventricular diastolic dysfunction, mild aortic regurgitation, mild pulmonary hypertension and small pericardial effusion. No evidence of tamponade on. Normal IVC dimensions and inspiratory collapse. All wall segments showed normal motion. It was recommended by cardiology she have a repeat echo in one week. Vital signs have been stable and she has been on room air. CBC has remained unremarkable and glucose has been one teens to 1:30. Potassium was a little low and was replaced. BUN and creatinine are stable. Urinalysis was unremarkable. Chest x -ray with no acute cardiopulmonary processes and CT of the chest with no acute intrathoracic process identified. Normal caliber of the thoracic aorta. PT and OT evaluate depression and recommended some rehabilitation for strengthening and gait stability. She is ready for discharge and will be taken to [facility] nursing [facility]. Discharge discussed with: patient, nurse, social work, case management - Time Spent with Patient Total time spent providing and/or coordinating discharge services: Less than 30 minutes - Discharge Medications Home Medications: Budesonide/Formoterol 80/4.5 [Symbicort 80/4.5] 1 puff IH DAILY 06/01/17 [ History] Ezetimibe 10 mg PO DAILY 06/01/17 [History] Lisinopril-HCTZ 20-12.5 [Prinzide 20-12.5] 1 tab PO DAILY 06/01/17 [History] Metoprolol Succinate [Toprol Xl] 25 mg PO DAILY 06/01/17 [History] Pantoprazole Sodium [Protonix] 40 mg PO DAILY 06/01/17 [History] Simvastatin [Zocor] 40 mg PO HS 06/01/17 [History] Acetaminophen [Tylenol] 650 mg PO Q6H PRN tablet 06/07/17 [Rx] Aspirin 81 mg PO DAILY tab.chew 06/07/17 [Rx] Nitroglycerin 0.4 mg SL Q5MIN PRN tab.subl 06/07/17 [Rx] Allergies/Adverse Reactions: 3 Allergy/AdvReac Type Severity Reaction Status Date / Time codeine Allergy Hives Verified 06/01/17 10:50 iodine Allergy Hives Verified 06/01/17 10:50 Date of admission: 06/01/17 12:04 Primary care physician: Ananda Chavez Colopy Consults: 06/03/17 12:50 Consult to Physical Therapy [CONS] Routine Comment: Evaluate, develop and implement POC Reason for Consult: weakness-falls Does patient have active BEDREST order?: No Is patient medically & hemodynamically stable?: Yes Patient assessed for mobility or mobilized this visit?: No 06/03/17 12:51 Consult to Occupational Therapy [CONS] Routine Comment: Evaluate, develop and implement POC Reason for Consult: weakness,falls Does patient have active BEDREST order?: No Is patient medically & hemodynamically stable?: Yes Patient assessed for mobility or mobilized this visit?: No 06/04/17 15:05 Consult to [employer] Supervisor [CONS] Routine Reason for SW Consult: ECF placement Discharging clinician: Maria Elena Gross Anticipated date of discharge: 06/07/17 - Constitutional Vitals: Temp Pulse Resp BP Pulse Ox 98.0 F 77 18 130/75 98 06/07/17 11:09 06/07/17 11:09 06/07/17 11:09 06/07/17 11:09 06/07/17 11:09 General appearance: Present: cooperative, A&O X 3, pleasant, answers questions appropriately - Head Head exam: Present: atraumatic, normocephalic - Eye Eye exam: Present: PERRL, conjuntiva pink, sclera anicteric Pupils: Present: PERRL - Neck Neck exam general surgery: Present: supple, trachea midline. Absent: lymphadenopathy - Respiratory Respiratory exam: Present: CTAB. Absent: accessory muscle use, rales, rhonchi, wheezes - Cardiovascular Cardiovascular exam: Present: RRR, +S1, +S2. Absent: diastolic murmur, gallop, rubs, systolic murmur - GI/Abdominal GI/Abdominal exam: Present: normal bowel sounds, soft, no peritoneal signs. Absent: distended, tenderness - Extremities Exam Extremities exam: Present: warm, radial pulses palpable and symmetrical. Absent : calf tenderness, cyanotic, pedal edema - Neurological Exam Neurological exam: Present: CN II-XII intact, oriented X3, no focal deficits. Absent: pronater drift, facial droop, speech deficit - Skin Skin exam: Present: dry, normal color, warm Additional comments: Scattered flat red rash on her back that is itchy likely related to women's - Patient Status Disposition: Transfer SNF Condition: Good Functional capacity at discharge: uses cane/walker Overall status at discharge: patient is progressing back to baseline - Discharge Instructions Follow Up With: Ananda Thakur DO [Primary Care Provider] - - Diet and Activity Activity: as per physical therapy, resume usual activities as tolerated Diet: advance to your usual diet, low fat, low cholesterol, low salt diet
--- NOTE | 2017-06-07 14:51 | Physician Discharge Referral ---
ExtendedCare Referral Info Transfer To: [facility] Provider in Charge: cindi - Diagnosis (1) Chest pain Priority: Primary Status: Acute (2) Coronary artery disease Priority: Primary Status: Chronic (3) Falls Priority: Primary Status: Acute (4) GERD (gastroesophageal reflux disease) Priority: Primary Status: Chronic (5) History of [place] (myocardial infarction) Priority: Primary Status: Chronic (6) Hyperlipemia Priority: Primary Status: Chronic (7) Hypertension Priority: Primary Status: Chronic (8) Weakness Priority: Primary Status: Acute - Transfer Medications Home Medications: Budesonide/Formoterol 80/4.5 [Symbicort 80/4.5] 1 puff IH DAILY 06/01/17 [ History] Ezetimibe 10 mg PO DAILY 06/01/17 [History] Lisinopril-HCTZ 20-12.5 [Prinzide 20-12.5] 1 tab PO DAILY 06/01/17 [History] Metoprolol Succinate [Toprol Xl] 25 mg PO DAILY 06/01/17 [History] Pantoprazole Sodium [Protonix] 40 mg PO DAILY 06/01/17 [History] Simvastatin [Zocor] 40 mg PO HS 06/01/17 [History] Acetaminophen [Tylenol] 650 mg PO Q6H PRN tablet 06/07/17 [Rx] Aspirin 81 mg PO DAILY tab.chew 06/07/17 [Rx] Nitroglycerin 0.4 mg SL Q5MIN PRN tab.subl 06/07/17 [Rx] Allergies/Adverse Reactions: 3 Allergy/AdvReac Type Severity Reaction Status Date / Time codeine Allergy Hives Verified 06/01/17 10:50 iodine Allergy Hives Verified 06/01/17 10:50 - Respiratory Orders None Smoking Cessation: Smoking cessation has been advised. For more information, call the [place] Tobacco Quit Line at 2-227-CDBT-NOW. - Advance Directives Code Status: Full Code - Mobility Orders Ambulate - Rehabiliation Orders Rehab Potential: Good - Diet Orders No Concentrated Sweets, Cardiac CERTIFICATION: I certify that the transfer of the above named patient to an Extended Care Facility is necessary for the continuing treatment of the diagnosis listed. The above information is true and accurate reflection of patient's current condition. Confidential - Redisclosure prohibited without a patient's written consent.
== END 2017-06-07 16:43 ==
LOC: EMEROO 09:54 → 3BNU 09:54
PROVIDERS: ADMIT Student in an Organized Health Care Education/Training Program; ATTEND Registered Nurse